=== PATIENT | female | born 2000 | race Caucasian/White ===

== ENCOUNTER 2020-10-30 10:12 | Observation (INO) ==
[2020-10-30] MEDS ORDERED: AZITHROMYCIN 250 MG TABLET PO ONE (10:38)
[2020-10-30] MEDS ORDERED: BETAMETHASONE ACETATE,SOD PHOS 6 MG/ML VIAL IM ONE (10:38)
[2020-10-30] MEDS ORDERED: AMPICILLIN SODIUM 2,000 MG in NORMAL SALINE 100 ML IV ONE (10:39)
--- NOTE | 2020-10-30 10:52 | HPDIS ---
Chief Complaint - Chief Complaint Date of Service: 10/30/20 Time of Service: 10:42 Chief Complaint: loss of fluid History of Present Illness: 20 year old at 24w 4d who presents to L&D complaining of a big gush of fluid. She denies ctx or vb. Fetus is active. No other concerns today. Medical History (Last Reviewed 10/30/20 @ 10:47 by Shadia Oneal MD) History of depression, currently (Chronic) History of gestational hypertension (Chronic) Adult BMI 39.0-39.9 kg/sq m (Chronic) Anxiety (Chronic) Elevated blood pressure reading in office without diagnosis of hypertension (Acute) anxiety vs chronic HTN. Anxiety Onset Date: Unknown hx: of citalopram d/c approximately 2 months ago Heart palpitations Onset Date: Unknown normal EKG 1 1/5 weeks ago. Obesity Onset Date: Unknown depression Onset Date: ~2017 Citalopram tx Tachycardia Onset Date: Unknown sinus tachycardia 2 1/2 weeks ago on EKG Hypothyroidism Onset Date: Unknown Gestational hypertension Onset Date: ~2017 Surgical History: Surgical History (Last Reviewed 10/30/20 @ 10:47 by Shadia Oneal MD) Onset Date: 02/13/20 History of tonsillectomy and adenoidectomy Onset Date: Unknown Family History: Family History (Last Reviewed 10/30/20 @ 10:47 by Shadia Oneal MD) Mother Lupus Hypothyroidism Father CVA (cerebral vascular accident) 2-3 Migraines Varicose veins of both lower extremities without ulcer or inflammation Other No pertinent family history Social History: (Last Reviewed 10/30/20 @ 10:47 by Shadia Oneal MD) Social History: adopted: No Marital status: Single household members: significant other number of children: 1 current occupational status: employed current occupation: [employer] Highest level of school completed/degree received: high school graduate Sexually Active: Yes Service: No Tobacco: Smoking Status: Never smoker Alcohol: alcohol intake: never Substance Use: substance use type: does not use Dietary Habits: caffeine: Yes caffeine comment: 1/day Type: tea daily servings of milk/calcium: 0-1 Pets: pets and animals: cat(s) Exercise: Physical activity type: walking frequency: 1-2 times per week Review Of Systems (GEN) - Review of Systems Generalized/Overall Review: Present: No Symptoms Reported Genitourinary: Present: Other - big gush of fluid Misc: All systems neg except as marked Immunizations: IMMUNIZATION HX Immunizations Up to Date Yes History of Influenza Vaccine Yes Hx Pneumococcal Vaccination No Allergies/Adverse Reactions: Allergies Allergy/AdvReac Type Severity Reaction Status Date / Time No Known Allergies Allergy Verified 10/13/20 11:39 Home Medications: HOME MEDICATIONS PNV 153-FA 400 mcg-om3 35 mg-dha 25 mg-epa 5 mg-fish oil chew tablet 2 tab PO DAILY tab 07/13/20 [Last Taken Unknown] hydroxyzine pamoate 25 mg capsule 25 mg PO Q4H PRN #180 cap 07/13/20 [Last Taken Unknown] aspirin 81 mg tablet,delayed release 81 mg PO DAILY 08/20/20 [Last Taken Unknown ] iron, carbonyl 18 mg iron chewable tablet 18 mg PO DAILY 08/20/20 [Last Taken Unknown] levothyroxine 100 mcg tablet 100 mcg PO DAILY #30 tab 08/26/20 [Last Taken Unknown] sertraline 50 mg tablet 50 mg PO DAILY #30 tab 08/26/20 [Last Taken Unknown] Exam - Exam Vital Signs: 37.3 118 18 128/64 97% RA 237 lbs Constitutional: Present: Alert, Oriented x3, Cooperative, No distress ENT Exam: Present: hearing grossly normal Eye Exam: bilateral eye: normal inspection Neck: Present: normal inspection Respiratory: Present: lungs clear, normal breath sounds Cardiovascular/Chest: Present: regular rate, rhythm Abdomen: Present: soft, nontender, nondistended /Rectal: Present: Other - SSE: + pooling, + Valsalva, cervix visually closed Nitrazine negative x2, Ferning negative Extremity: Present: non-tender, no calf tenderness Skin Exam: Present: normal color, warm/dry, no cyanosis Neurologic: Present: alert, normal mood/affect, oriented x 3 Appearance: Present: appropriate appearance, appropriate insight, neat, no memory impairment Eye contact: Present: cooperative, good eye contact, normal speech Thoughts: Present: normal thought pattern Assessment/Plan - Assessment/Plan (1) premature rupture of membranes (PPROM) with unknown onset of labor Assessment: Speculum examination positive for rupture Fern and nitrazine negative EMMY normal One dose of steroids given Ampicillin and zithromax given as well Transfer to the [facility] to determine definitively ruptured Problem: Acute (1) premature rupture of membranes (PPROM) with unknown onset of labor Problem: Acute Date of Discharge:: 10/30/20 Hospital Course: Patient came in large gush of fluid, rupture could not be ruled out definitively so patient transferred to the [place] Procedures Performed: none Discharge Location: [facility] Disposition: Short Term Hospital Inpatient Condition: Good Discharge Activity: Other - bed rest Discharge Diet: General/regular food Complete Home Medications List: Complete Home Medication List: PNV 153-FA 400 mcg-om3 35 mg-dha 25 mg-epa 5 mg-fish oil chew tablet 2 tab PO DAILY tab 07/13/20 hydroxyzine pamoate 25 mg capsule 25 mg PO Q4H PRN #180 cap 07/13/20 aspirin 81 mg tablet,delayed release 81 mg PO DAILY 08/20/20 iron, carbonyl 18 mg iron chewable tablet 18 mg PO DAILY 08/20/20 levothyroxine 100 mcg tablet 100 mcg PO DAILY #30 tab 08/26/20 sertraline 50 mg tablet 50 mg PO DAILY #30 tab 08/26/20
[2020-10-30 11:03] VITALS: BP 118/66
== END 2020-10-30 12:17 | disposition short-term general hospital (02) ==
LOC: OBCLINIC 10:12 → OB 10:12
PROVIDERS: ADMIT Obstetrics & Gynecology; ATTEND Obstetrics & Gynecology
DX: O42.912 Preterm premature rupture of membranes, unspecified as to length of time between rupture and onset of labor, second trimester; Z3A.24 24 weeks gestation of pregnancy

== ENCOUNTER 2021-01-22 16:27 | Inpatient (IN) ==
[2021-01-22] MEDS ORDERED: RINGER'S SOLUTION,LACTATED 1,000 ML IV ONE (16:31)
[2021-01-22] MEDS ORDERED: ONDANSETRON 4 MG TAB.RAPDIS PO PRN (16:31)
[2021-01-22] MEDS ORDERED: MAGNESIUM SULFATE IN WATER 50 ML, MAGNESIUM SULFATE IN WATER 50 ML IV ONE ×2 (16:31)
[2021-01-22] MEDS ORDERED: OXYTOCIN/0.9 % SODIUM CHLORIDE 30 UNITS/500 ML BAG IV ONE (16:31)
[2021-01-22] MEDS ORDERED: DEXTROSE 5%-LACTATED RINGERS 1,000 ML IV PRN (16:31)
[2021-01-22] MEDS ORDERED: CALCIUM GLUCONATE 4.65 MEQ/10 ML VIAL IV PRN (16:31)
[2021-01-22] MEDS ORDERED: PENICILLIN G POTASSIUM 5 MILLIONUNT in DEXTROSE 5 % IN WATER 100 ML IV ONE ×2 (16:41)
[2021-01-22] MEDS ORDERED: MAGNESIUM SULFATE IN WATER 1,000 ML IV SCH (16:45)
[2021-01-22] MEDS ORDERED: LABETALOL HCL 5 MG/ML VIAL IV ONE ×2 (16:51→17:40)
[2021-01-22] MEDS ORDERED: LABETALOL HCL 100 MG TABLET PO SCH (17:00)
[2021-01-22 17:17] LABS: Hematocrit 38.4 % (37.0-47.0); Hemoglobin 12.5 gm/dL (12.5-16.0); Mean Corpuscular Hemoglobin 29.6 pg (27-31); Mean Corpuscular Hgb Conc 32.6 g/dl (32-36); Mean Platelet Volume 11.8 fl (8-12.5); Platelet Count 178 K/mm3 (150-450); Red Blood Count 4.22 M/mm3 (4.2-5.4); Red Cell Distribution Width 14.2 % (11.5-14.0); White Blood Count 9.9 K/mm3 (4.0-10.5)
[2021-01-22 17:20] LABS: Total Cells Counted 100
[2021-01-22 17:30] LABS: Albumin * 2.3 gm/dl (3.4-5.0); Anion Gap 13.3 mmol/L (6.8-13.8); BUN/Creatinine Ratio 12.8 (9.0-21.6); Bilirubin, Total 0.3 mg/dL (0.0-1.1); Ca. Corrected For Albumin 10.1 mg/dL (8.4-10.2); Calcium * 9.1 mg/dL (7.9-10.9); Carbon Dioxide 24.7 mmol/L (24-32.6); Total Protein 6.1 gm/dL (6.2-8.2)
[2021-01-22 17:43] LABS: Eosinophil 1 % (0-3); Lymphocyte 27 % (20-51); Monocyte 4 % (0-9); Neutrophil 68 % (42-75); Neutrophil # 6.7 K/mm3 (1.3-6.0); Platelet Estimate Normal (NORMAL); RBC Morphology Normal (NORMAL)
[2021-01-22] MEDS ORDERED: LABETALOL HCL 100 MG TABLET PO STA (18:26)
[2021-01-22] MEDS: LABETALOL HCL 5 MG/ML VIAL IV ONE ×2 (18:32→18:50)
[2021-01-22 19:13] LABS: Cocaine Ur Negative (NEGATIVE); Urine Barbiturate Negative (NEGATIVE); Urine Benzodiazepines Negative (NEGATIVE); Urine Opiates Negative (NEGATIVE); Urine PCP Negative (NEGATIVE); Urine THC Negative (NEGATIVE)
--- NOTE | 2021-01-22 19:24 | HP ---
Chief Complaint - Chief Complaint Date of Service: 01/22/21 Time of Service: 16:45 Chief Complaint: here for BP check History of Present Illness: 20 yo at 36w4d admitted to L&D for induction of labor due to chronic hypertension with superimposed preeclampsia with severe features. Pt diagnosed yesterday with preeclampsia in office. Returned today for repeat BP check with severe range BPs. She denies GIORDANO, visual changes, or epigastric pain. Admits to increased swelling. This complicated by anemia, anxiety, CHTN on no meds, hypothyroid, morbid obesity, history of PP depression, and history of GHTN. Rh positive Rubella immune GBS pending Medical History (Last Reviewed 01/22/21 @ 19:16 by Adria Jaimes DO) History of depression, currently (Chronic) History of gestational hypertension (Chronic) Adult BMI 39.0-39.9 kg/sq m (Chronic) Anxiety (Chronic) Elevated blood pressure reading in office without diagnosis of hypertension (Acute) anxiety vs chronic HTN. Anxiety Onset Date: Unknown hx: of citalopram d/c approximately 2 months ago Heart palpitations Onset Date: Unknown normal EKG 1 1/5 weeks ago. Obesity Onset Date: Unknown depression Onset Date: ~2017 Citalopram tx Tachycardia Onset Date: Unknown sinus tachycardia 2 1/2 weeks ago on EKG Hypothyroidism Onset Date: Unknown Gestational hypertension Onset Date: ~2018 Surgical History: Surgical History (Last Reviewed 01/22/21 @ 19:16 by Adria Jaimes DO) Onset Date: 02/13/20 History of tonsillectomy and adenoidectomy Onset Date: Unknown Family History: Family History (Last Reviewed 01/22/21 @ 19:16 by Adria Jaimes DO) Mother Lupus Hypothyroidism Father CVA (cerebral vascular accident) 2-3 Migraines Varicose veins of both lower extremities without ulcer or inflammation Other No pertinent family history Social History: (Last Reviewed 01/22/21 @ 19:16 by Adria Jaimes DO) Social History: adopted: No Marital status: Single household members: significant other number of children: 1 current occupational status: employed current occupation: [employer] Highest level of school completed/degree received: high school graduate Sexually Active: Yes Service: No Tobacco: Smoking Status: Never smoker Alcohol: alcohol intake: never Substance Use: substance use type: does not use Dietary Habits: caffeine: Yes caffeine comment: 1/day Type: tea daily servings of milk/calcium: 0-1 Pets: pets and animals: cat(s) Exercise: Physical activity type: walking frequency: 1-2 times per week Review Of Systems (GEN) - Review of Systems Generalized/Overall Review: Present: Weight gain EENTM: Present: No Symptoms Reported Respiratory: Present: No Symptoms Reported Cardiac: Present: Edema Abdominal: Present: No Symptoms Reported Genitourinary: Present: No Symptoms Reported Musculoskeletal: Present: No Symptoms Reported Neurological: Present: Anxiety Skin: Present: No Symptoms Reported Endocrine: Present: No Symptoms Reported Immunizations: IMMUNIZATION HX Immunizations Up to Date Yes History of Influenza Vaccine Yes Hx Pneumococcal Vaccination No Allergies/Adverse Reactions: Allergies Allergy/AdvReac Type Severity Reaction Status Date / Time No Known Allergies Allergy Verified 01/22/21 16:20 Home Medications: HOME MEDICATIONS PNV 153-FA 400 mcg-om3 35 mg-dha 25 mg-epa 5 mg-fish oil chew tablet 2 tab PO DAILY tab 07/13/20 [Last Taken Unknown] aspirin 81 mg tablet,delayed release 81 mg PO DAILY 08/20/20 [Last Taken Unknown] hydroxyzine pamoate 25 mg capsule 25 mg PO Q4H PRN #180 cap 11/24/20 [Last Taken Unknown] sertraline 50 mg tablet 50 mg PO DAILY tab 12/07/20 [Last Taken Unknown] levothyroxine 125 mcg tablet 125 mcg PO DAILY #30 tab 01/12/21 [Last Taken Unknown] ferrous sulfate 325 mg (65 mg iron) tablet,delayed release 325 mg PO BID #30 tab 01/14/21 [Last Taken Unknown] Exam - Exam Vital Signs: Vital Signs - Last Taken Pulse 99 01/22/21 18:50 BP 169/93 H 01/22/21 18:50 O2 99%, R 16, T 37.0C Diagnostic Studies: Abnormal Lab Results 01/22/21 01/22/21 Range/Units 16:51 16:51 RDW 14.2 H (11.5-14.0) % Neutrophils # (Manual) 6.7 H (1.3-6.0) K/mm3 Alkaline Phosphatase 218 H (50-170) U/L Total Protein 6.1 L (6.2-8.2) gm/dL Albumin 2.3 L (3.4-5.0) gm/dl Laboratory Results WBC 9.9 K/mm3 (4.0-10.5) 01/22/21 16:51 RBC 4.22 M/mm3 (4.2-5.4) 01/22/21 16:51 Hgb 12.5 gm/dL (12.5-16.0) 01/22/21 16:51 Hct 38.4 % (37.0-47.0) 01/22/21 16:51 MCV 91.0 fl (78-100) 01/22/21 16:51 MCH 29.6 pg (27-31) 01/22/21 16:51 MCHC 32.6 g/dl (32-36) 01/22/21 16:51 RDW 14.2 % (11.5-14.0) H 01/22/21 16:51 Plt Count 178 K/mm3 (150-450) 01/22/21 16:51 MPV 11.8 fl (8-12.5) 01/22/21 16:51 Neutrophils % (Manual) 68 % (42-75) 01/22/21 16:51 Lymphocytes % (Manual) 27 % (20-51) 01/22/21 16:51 Monocytes % (Manual) 4 % (0-9) 01/22/21 16:51 Eosinophils % (Manual) 1 % (0-3) 01/22/21 16:51 Neutrophils # (Manual) 6.7 K/mm3 (1.3-6.0) H 01/22/21 16:51 Lymphocytes # (Manual) 2.7 k/mm3 (1.5-3.5) 01/22/21 16:51 Monocytes # (Manual) 0.4 k/mm3 (0.0-1.0) 01/22/21 16:51 Eosinophils # (Manual) 0.1 k/mm3 (0.0-0.7) 01/22/21 16:51 Platelet Estimate Normal (NORMAL) 01/22/21 16:51 RBC Morphology Normal (NORMAL) 01/22/21 16:51 Sodium 140 mmol/L (132-142) 01/22/21 16:51 Plasma Sodium 140 mmol/L (130-142) 01/22/21 16:51 Potassium 4.0 mmol/L (3.4-4.6) 01/22/21 16:51 Chloride 106 mmol/L (97-106) 01/22/21 16:51 Carbon Dioxide 24.7 mmol/L (24-32.6) 01/22/21 16:51 Anion Gap 13.3 mmol/L (6.8-13.8) 01/22/21 16:51 BUN 12 mg/dL (3-23) 01/22/21 16:51 Creatinine 0.94 mg/dL (0.4-1.4) 01/22/21 16:51 Est GFR (Non-Af Amer) 79 mL/min (60-130) 01/22/21 16:51 BUN/Creatinine Ratio 12.8 (9.0-21.6) 01/22/21 16:51 Random Glucose 77 mg/dL (70-110) 01/22/21 16:51 Calcium 9.1 mg/dL (7.9-10.9) 01/22/21 16:51 Calcium Adj for Albumin 10.1 mg/dL (8.4-10.2) 01/22/21 16:51 Total Bilirubin 0.3 mg/dL (0.0-1.1) 01/22/21 16:51 AST 23 U/L (0-48) 01/22/21 16:51 ALT 19 U/L (19-67) 01/22/21 16:51 Alkaline Phosphatase 218 U/L (50-170) H 01/22/21 16:51 Total Protein 6.1 gm/dL (6.2-8.2) L 01/22/21 16:51 Albumin 2.3 gm/dl (3.4-5.0) L 01/22/21 16:51 Assessment/Plan - Assessment/Plan (1) Chronic hypertension with superimposed preeclampsia Assessment: Admit for pitocin induction of labor, antihypertensives to control BP, and magnesium sulfate IV to prevent seizures. Epidural PRN. Will start on IV PCN for GBS prophylaxis since culture results still pending and patient . Problem: Acute (2) Severe preeclampsia Problem: Acute Qualifiers: Trimester: third trimester Qualified Code(s): O14.13 - Severe pre- eclampsia, third trimester (3) History of depression, currently Problem: Chronic (4) History of gestational hypertension Problem: Chronic (5) Anxiety Problem: Chronic (6) Anemia Problem: Resolved Qualifiers: Anemia type: iron deficiency Iron deficiency anemia type: inadequate dietary iron intake Qualified Code(s): D50.8 - Other iron deficiency anemias (7) Hypothyroid Problem: Acute Qualifiers: Hypothyroidism type: unspecified Qualified Code(s): E03.9 - Hypothyroidism, unspecified (8) Obesity, morbid, BMI 40.0-49.9 Problem: Acute
--- NOTE | 2021-01-22 19:50 | PN ---
Progess Note - Interim Date: 01/22/21 Time: 19:46 Narrative: 01/22/21 19:46 Patient rating contractions as mild. Denies headache, visual changes, or epigastric pain. Blood pressures no longer in severe range after 80 mg of labetalol IV and 200 mg p.o. Pitocin just started at 3 mu/min. FHT: 150 baseline, minimum variability with occasional mild variable, good accelerations. Contractions q 4-7 min Cervix: 3-4/80/-3, AROM-clear Impression: Intrauterine at 36 weeks 4 days weeks induction of labor for chronic hypertension with superimposed preeclampsia with severe features. Plan: Continue present plan
[2021-01-22] MEDS ORDERED: BUPIVACAINE HCL/0.9 % NACL/PF 250 ML EP PRN (20:52)
[2021-01-22] MEDS ORDERED: ONDANSETRON HCL/PF 2 MG/ML VIAL IV PRN (20:52)
[2021-01-22] MEDS ORDERED: NALOXONE HCL 1 MG/1 ML SYRG IV PRN (20:52)
[2021-01-22] MEDS ORDERED: BUPIVACAINE HCL/PF 30 ML VIAL EP SCH (21:00)
--- NOTE | 2021-01-22 21:40 | ANES ---
Anesthesia Pre Procedure Eval Vitals/Labs: Last Vital Signs Temp 37.0 C 01/22/21 21:11 Pulse 107 H 01/22/21 21:11 Resp 18 01/22/21 21:11 BP 145/81 H 01/22/21 21:11 Pulse Ox 100 01/22/21 21:11 HOME MEDICATIONS PNV 153-FA 400 mcg-om3 35 mg-dha 25 mg-epa 5 mg-fish oil chew tablet 2 tab PO DAILY tab 07/13/20 [Last Taken 01/21/21 14:00] aspirin 81 mg tablet,delayed release 81 mg PO DAILY 08/20/20 [Last Taken 01/22/21] hydroxyzine pamoate 25 mg capsule 25 mg PO Q4H PRN #180 cap 11/24/20 [Last Taken 01/21/21 10:00] sertraline 50 mg tablet 50 mg PO DAILY tab 12/07/20 [Last Taken 01/21/21 21:00] levothyroxine 125 mcg tablet 125 mcg PO DAILY #30 tab 01/12/21 [Last Taken 01/22/21 07:00] ferrous sulfate 325 mg (65 mg iron) tablet,delayed release 325 mg PO BID #30 tab 01/14/21 [Last Taken 01/22/21 09:00] Allergies/Adverse Reactions: Allergies Allergy/AdvReac Type Severity Reaction Status Date / Time No Known Allergies Allergy Verified 01/22/21 16:20 - Planned Procedure Planned Procedure: Labor Epidural Medication List Reviewed:: Yes Allergies Verified: Yes Medical History (Last Reviewed 01/22/21 @ 21:39 by Rohit Monahan CRNA) History of depression, currently (Chronic) History of gestational hypertension (Chronic) Adult BMI 39.0-39.9 kg/sq m (Chronic) Anxiety (Chronic) Elevated blood pressure reading in office without diagnosis of hypertension (Acute) anxiety vs chronic HTN. Anxiety Onset Date: Unknown hx: of citalopram d/c approximately 2 months ago Heart palpitations Onset Date: Unknown normal EKG 1 1/5 weeks ago. Obesity Onset Date: Unknown depression Onset Date: ~2017 Citalopram tx Tachycardia Onset Date: Unknown sinus tachycardia 2 1/2 weeks ago on EKG Hypothyroidism Onset Date: Unknown Gestational hypertension Onset Date: ~2017 Surgical History (Last Reviewed 01/22/21 @ 21:39 by Rohit Monahan CRNA) Onset Date: 02/13/20 History of tonsillectomy and adenoidectomy Onset Date: Unknown Family History (Last Reviewed 01/22/21 @ 19:16 by Adria Jaimes DO) Mother Lupus Hypothyroidism Father CVA (cerebral vascular accident) 2-3 Migraines Varicose veins of both lower extremities without ulcer or inflammation Other No pertinent family history - Anesthesia Assessment and Plan ASA Class: PS, III Anesthesia Type Plan: Epidural
[2021-01-22] MEDS: PENICILLIN G POTASSIUM 2.5 MILLIONUNT in DEXTROSE 5 % IN WATER 100 ML IV SCH ×2 (21:58)
--- NOTE | 2021-01-22 21:58 | ANES ---
Anesthesia Procedure Note Procedure Note: ANESTHESIA PROCEDURE NOTE Date of Procedure: 01/22/2021. Time of procedure: 2139. Performed by: Rohit Monahan CRNA Multifocal Lens Assembler: None. Preprocedure diagnosis: Active labor. Post procedure diagnosis: Same. Procedure: Insertion of labor epidural. Indications: The patient is a 20-year-old female in active labor requesting labor epidural for pain management. Findings: See below. Details of the procedure: The patient was placed in a sitting position. DuraPrep as well as Betadine swabs X3 was applied to the patient's back. Patient was then draped in a sterile fashion. Lidocaine 1% was infiltrated to the skin and subcutaneous tissues at the level of the L3-4 interspace. The epidural space was identified using a 18-gauge Tuohy needle with [id number] technique. Epidural catheter was inserted to a depth of 15 centimeters at skin. Negative test dose was elicited using 3 mL of 1.5% preservative-free lidocaine plus epinephrine 1 200,000. The epidural catheter was then taped and secured in place. A loading dose of 8 mL of 0.25% preservative-free bupivacaine was administered to the epidural catheter after negative aspiration for blood and CSF. EBL: Minimal. Fluids: N/A. Specimen: N/A. Post procedure condition: The patient tolerated the procedure well. No complications were noted. Thank you for this consultation. Rohit Monahan CRNA
--- NOTE | 2021-01-22 21:59 | ANES ---
Post Anesthesia Assessment - Vital Signs Vitals: Last Vital Signs Temp 37.0 C 01/22/21 21:11 Pulse 107 H 01/22/21 21:11 Resp 18 01/22/21 21:11 BP 145/81 H 01/22/21 21:11 Pulse Ox 100 01/22/21 21:11 Airway Patency: Normal - Mental Status Level Of Consciousness: Awake - N/V Assessment Nausea/Vomiting Presence: None Dehydration:: No
--- NOTE | 2021-01-23 00:21 | PN ---
Progess Note - Interim Date: 01/23/21 Time: 00:17 Narrative: 01/23/21 00:17 Patient comfortable with epidural Vital signs stable. Blood pressures in the mild range. Urine output decreasing down to 20 mL/h, dark and concentrated. Brachial radialis reflex 2+ Pitocin at 9 mu/min. FHT: 145 baseline, mild to moderate variability with mild variable decelerations with contractions. Contractions q 2-4 min Cervix: 7/90/-3 Impression: Intrauterine at 36-5/7 weeks weeks induction of labor for chronic hypertension with superimposed preeclampsia with severe features Plan: Anticipate normal spontaneous vaginal delivery within the next 2 to 3 hours. Will give 500 mm fluid bolus to see if urine output increases.
[2021-01-23] MEDS: PENICILLIN G POTASSIUM 2.5 MILLIONUNT in DEXTROSE 5 % IN WATER 100 ML IV SCH ×2 (01:18)
[2021-01-23] MEDS ORDERED: BUPIVACAINE HCL 50 ML VIAL IJ ONE (02:30)
[2021-01-23] MEDS ORDERED: ONDANSETRON HCL/PF 2 MG/ML VIAL ONE (02:31)
[2021-01-23] MEDS ORDERED: LIDOCAINE HCL/EPINEPHRINE 20 ML VIAL ONE (02:31)
[2021-01-23] MEDS ORDERED: ACETAMINOPHEN 325 MG TABLET PO PRN (03:20)
[2021-01-23] MEDS ORDERED: SENNOSIDES 8.6 MG TABLET PO PRN (03:20)
[2021-01-23] MEDS ORDERED: CALCIUM GLUCONATE 4.65 MEQ/10 ML VIAL IV PRN (03:20)
[2021-01-23] MEDS ORDERED: BENZOCAINE/MENTHOL 81 SPRAY CAN TP PRN (03:20)
[2021-01-23] MEDS ORDERED: HYDROCORTISONE 30 APPL TUBE TP PRN (03:20)
[2021-01-23] MEDS ORDERED: ONDANSETRON 4 MG TAB.RAPDIS PO PRN (03:20)
[2021-01-23] MEDS ORDERED: BISACODYL 10 MG SUPP.RECT RC PRN (03:20)
[2021-01-23] MEDS ORDERED: GLYCERIN/WITCH HAZEL LEAF 40 APPL BOX TP PRN (03:20)
[2021-01-23] MEDS ORDERED: OXYTOCIN/0.9 % SODIUM CHLORIDE 30 UNITS/500 ML BAG IV ONE (03:20)
--- NOTE | 2021-01-23 03:29 | OR ---
Operative Report - Dictated Report Narrative: Patient was taken back to the OR for vaginal delivery with OR crew on standby for possible due to repetitive late decelerations down to 4050 bpm lasting 1 to 1.5 minutes. Baby was in OP presentation and rotated manually to GUILLERMO. Spontaneous vaginal delivery of viable female at 0253 on 01/23/2021 with Apgars 5, 7, 7 weighing 3287 g and GUILLERMO position with tight nuchal cord x1. Cord clamping delayed approximately 30 seconds Placenta delivered complete, intact, with three vessel cord Estimated blood loss: Less than 50 ml Anesthesia: Epidural Lacerations: None Cord gases obtained: Arterial pH 7.04, CO2 67.9, base excess -13.4 venous pH 7.27, CO2 37.5, base excess -9.1
[2021-01-23] MEDS ORDERED: LABETALOL HCL 5 MG/ML VIAL IV ONE ×2 (05:47→07:30)
[2021-01-23] MEDS: DEXTROSE 5%-LACTATED RINGERS 1,000 ML IV PRN ×3 (06:07→21:07)
[2021-01-23] MEDS: LABETALOL HCL 100 MG TABLET PO SCH ×2 (06:09→16:48)
[2021-01-23] MEDS: IBUPROFEN 800 MG TABLET PO PRN (07:05)
[2021-01-23] MEDS ORDERED: LABETALOL HCL 100 MG TABLET PO SCH ×3 (09:00→17:30)
[2021-01-23] MEDS ORDERED: SERTRALINE HCL 50 MG TABLET PO SCH (09:00)
[2021-01-23] MEDS ORDERED: LEVOTHYROXINE SODIUM 125 MCG TABLET PO SCH (09:00)
[2021-01-23] MEDS: DOCUSATE SODIUM 100 MG CAPSULE PO SCH ×2 (09:13→20:59)
[2021-01-23] MEDS: PRENATAL VITS96/IRON FUM/FOLIC 1 TAB TABLET PO SCH (09:13)
[2021-01-23] MEDS: LEVOTHYROXINE SODIUM 125 MCG TABLET PO SCH (09:13)
[2021-01-23] MEDS: SERTRALINE HCL 50 MG TABLET PO SCH (09:13)
[2021-01-23] MEDS: MAGNESIUM SULFATE IN WATER 1,000 ML IV SCH ×2 (13:58→20:59)
[2021-01-23] MEDS: LABETALOL HCL 5 MG/ML VIAL IV ONE (16:20)
--- NOTE | 2021-01-23 16:20 | PN ---
Subjective - Date and Time Seen Date: 01/23/21 Time: 16:12 Subjective Narrative: Patient denies headache, flashes of light, or abdominal pain. Some trouble focusing her vision due to the magnesium but otherwise asymptomatic. Breast- feeding well. Objective - Review of Systems Generalized/Overall Review: Reports: No Symptoms Reported EENTM: Reports: Blurred Vision Respiratory: Reports: No Symptoms Reported. Denies: Shortness of Breath Cardiac: Reports: Edema. Denies: Chest Pain Abdominal: Denies: Nausea, Vomiting, Abdominal Pain Genitourinary Symptoms: Reports: No Symptoms Reported Musculoskeletal Complaints: Reports: No Symptoms Reported Neurological: Reports: No Symptoms Reported Skin: Reports: No Symptoms Reported Endocrine: Reports: No Symptoms Reported - Vitals Vitals: Last Vital Signs Temp 36.4 C 01/23/21 12:00 Pulse 85 01/23/21 15:00 Resp 16 01/23/21 15:00 BP 161/92 H 01/23/21 15:00 Pulse Ox 100 01/23/21 15:00 Blood pressures elevated in severe range this morning and again now. - Abnormal Lab Findings Abnormal Lab Findings: Abnormal Lab Results 01/22/21 01/22/21 Range/Units 16:51 16:51 RDW 14.2 H (11.5-14.0) % Neutrophils # (Manual) 6.7 H (1.3-6.0) K/mm3 Alkaline Phosphatase 218 H (50-170) U/L Total Protein 6.1 L (6.2-8.2) gm/dL Albumin 2.3 L (3.4-5.0) gm/dl - Exam Constitutional: Present: Alert, Oriented x3, Cooperative, No distress ENT Exam: Present: hearing grossly normal Breasts: Present: Exam deferred Respiratory: Present: no respiratory distress Cardiovascular/Chest: Present: regular rate, rhythm Abdomen: Present: soft, nontender, no rebound tenderness Extremity: Present: no calf tenderness, lower extremity edema - 3+ Skin Exam: Present: normal color, warm/dry, no cyanosis Neurologic: Present: alert, normal mood/affect, oriented x 3, other - DTR 3/4, no clonus Appearance: Present: appropriate appearance, appropriate insight Eye contact: Present: cooperative, good eye contact Thoughts: Present: normal thought pattern, normal mood /affect Cauti Physician Documentation - Urinary Catheter Management Urethral ([place]) Urethral Indwelling: Yes Reason for Continuing Indwelling Catheter: Measure accurate output Date of Insertion: 01/22/21 Time of Insertion: 17:58 Date of Removal: 01/24/21 Time of Removal: 02:00 Assessment/Plan Plan Narrative: Give another dose of labetalol 20 mg IV x1. Continue to monitor urine output closely. Continue magnesium sulfate at least 24 hours. Once magnesium sulfate DC'd, will advance diet, remove catheter, and increase activity. - Problems/Diagnosis (1) Chronic hypertension with superimposed preeclampsia Problem: Acute (2) Severe preeclampsia Problem: Acute Qualifiers: Trimester: third trimester Qualified Code(s): O14.13 - Severe pre- eclampsia, third trimester (3) History of depression, currently Problem: Chronic (4) History of gestational hypertension Problem: Chronic (5) Anxiety Problem: Chronic (6) Anemia Problem: Resolved Qualifiers: Anemia type: iron deficiency Iron deficiency anemia type: inadequate dietary iron intake Qualified Code(s): D50.8 - Other iron deficiency anemias (7) Hypothyroid Problem: Acute Qualifiers: Hypothyroidism type: unspecified Qualified Code(s): E03.9 - Hypothyroidism, unspecified (8) Obesity, morbid, BMI 40.0-49.9 Problem: Acute
[2021-01-24] MEDS: LABETALOL HCL 100 MG TABLET PO SCH ×3 (05:43→21:17)
[2021-01-24] MEDS ORDERED: [UNRECOGNIZED DRUG - REMARK] PO SCH (09:00)
[2021-01-24] MEDS: PRENATAL VITS96/IRON FUM/FOLIC 1 TAB TABLET PO SCH (09:19)
[2021-01-24] MEDS: DOCUSATE SODIUM 100 MG CAPSULE PO SCH ×2 (09:20→21:15)
--- NOTE | 2021-01-24 09:21 | PN ---
Progess Note - Interim Date: 01/24/21 Time: 09:17 Narrative: 01/24/21 09:17 Patient feeling much better since magnesium discharged. Denies headache, visual changes, or epigastric pain. Breast-feeding. Blood pressures running 140s - 150s over 80s - 90s on 300 mg of labetalol twice daily. I/O: 700 in, 1300 out over last 4 hours. Lochia wnl abdomen - soft, nontender Uterus -firm, at umbilicus - 1 DTR-3/4. No calf tenderness. 3+ pitting edema to knees. Impression: day #1 - s/p spontaneous vaginal delivery. Chronic hypertension with superimposed preeclampsia with severe features-resolving. Patient's blood pressures seem to be better controlled, starting to murray zapata, bonding with baby well. Plan: Continue routine care. Continue to monitor closely for return of severe features. Anticipate discharge to home tomorrow morning.
[2021-01-24] MEDS: SERTRALINE HCL 50 MG TABLET PO SCH (09:36)
[2021-01-24] MEDS: LEVOTHYROXINE SODIUM 125 MCG TABLET PO SCH (09:38)
[2021-01-24] MEDS: IBUPROFEN 800 MG TABLET PO PRN ×2 (11:48→21:40)
[2021-01-24] MEDS: oxyCODONE HCL/ACETAMINOPHEN 1 TAB TABLET PO PRN (11:48)
[2021-01-24] MEDS ORDERED: LABETALOL HCL 5 MG/ML VIAL IV ONE (12:05)
[2021-01-24] MEDS: LABETALOL HCL 5 MG/ML VIAL IV ONE (12:24)
[2021-01-25] MEDS: LEVOTHYROXINE SODIUM 125 MCG TABLET PO SCH (07:32)
[2021-01-25] MEDS: LABETALOL HCL 100 MG TABLET PO SCH ×3 (08:51→17:53)
[2021-01-25] MEDS: SERTRALINE HCL 50 MG TABLET PO SCH (08:51)
[2021-01-25] MEDS: PRENATAL VITS96/IRON FUM/FOLIC 1 TAB TABLET PO SCH (08:51)
[2021-01-25] MEDS: oxyCODONE HCL/ACETAMINOPHEN 1 TAB TABLET PO PRN (08:52)
[2021-01-25] MEDS: DOCUSATE SODIUM 100 MG CAPSULE PO SCH ×2 (08:52→20:16)
--- NOTE | 2021-01-25 09:19 | PN ---
Subjective - Date and Time Seen Date: 01/25/21 Time: 09:17 Objective - Vitals Vitals: Last Vital Signs Temp 36.7 C 01/25/21 07:23 Pulse 85 01/25/21 08:51 Resp 18 01/25/21 07:23 BP 158/85 H 01/25/21 08:51 Pulse Ox 98 01/25/21 07:23 Patient denies complaints. Breast-feeding well. Denies headache, visual changes, or epigastric pain. Lochia wnl abdomen - soft, nontender Uterus -firm, at umbilicus - 2 No calf tenderness Impression: day #2 - s/p spontaneous vaginal delivery. Chronic hypertension with superimposed severe preeclampsia-slowly resolving. Patient requiring 300 mg of labetalol twice daily with blood pressure still borderline severe. Will increase blood pressure medication to 300 mg 3 times daily. Plan: Routine discharge instructions. Preeclampsia precautions. Follow-up in the office in 1 week for blood pressure check. Cauti Physician Documentation - Urinary Catheter Management Urethral ([place]) Urethral Indwelling: Yes Date of Insertion: 01/22/21 Time of Insertion: 17:58 Date of Removal: 01/24/21 Time of Removal: 05:58 Assessment/Plan - Problems/Diagnosis (1) Chronic hypertension with superimposed preeclampsia Problem: Acute (2) Severe preeclampsia Problem: Acute Qualifiers: Trimester: third trimester Qualified Code(s): O14.13 - Severe pre- eclampsia, third trimester (3) History of depression, currently Problem: Chronic (4) History of gestational hypertension Problem: Chronic (5) Anxiety Problem: Chronic (6) Anemia Problem: Resolved Qualifiers: Anemia type: iron deficiency Iron deficiency anemia type: inadequate dietary iron intake Qualified Code(s): D50.8 - Other iron deficiency anemias (7) Hypothyroid Problem: Acute Qualifiers: Hypothyroidism type: unspecified Qualified Code(s): E03.9 - Hypothyroidism, unspecified (8) Obesity, morbid, BMI 40.0-49.9 Problem: Acute
[2021-01-25] MEDS ORDERED: NIFEdipine 30 MG TAB.SR.24H PO SCH (12:30)
[2021-01-25] MEDS ORDERED: LABETALOL HCL 5 MG/ML VIAL IV ONE ×2 (14:46→15:30)
[2021-01-25] MEDS ORDERED: hydrALAZINE HCL 20 MG/ML VIAL IV ONE (16:10)
[2021-01-25] MEDS ORDERED: hydrOXYzine PAMOATE 25 MG CAPSULE PO PRN (16:53)
--- NOTE | 2021-01-25 19:35 | PN ---
Jose Note - Interim Date: 01/25/21 Time: 19:29 Narrative: 01/25/21 19:29 Prior to discharge patient began having severe range blood pressures she was given 20 mg of IV labetalol and started on nifedipine XL 60 mg in addition to her labetalol 300 mg twice daily. Within a short period of time she believed had another episode of severely elevated blood pressures. This time she was given hydralazine 20 mg IV which brought her blood pressures down to a normal range. I suspect a significant contributing factor to her elevated blood pressures as her anxiety. I will increase her Zoloft to 75 mg daily and send her home on labetalol 300 mg twice daily with nifedipine XL 90 mg daily. We wi ll continue to monitor her blood pressures overnight. If she remains stable she will be discharged tomorrow morning.
[2021-01-26] MEDS: oxyCODONE HCL/ACETAMINOPHEN 1 TAB TABLET PO PRN (06:43)
[2021-01-26] MEDS: IBUPROFEN 800 MG TABLET PO PRN (06:43)
[2021-01-26] MEDS: LEVOTHYROXINE SODIUM 125 MCG TABLET PO SCH (06:43)
[2021-01-26] MEDS: DOCUSATE SODIUM 100 MG CAPSULE PO SCH (08:37)
[2021-01-26] MEDS: PRENATAL VITS96/IRON FUM/FOLIC 1 TAB TABLET PO SCH (08:37)
[2021-01-26 08:41] VITALS: BP 135/83
[2021-01-26] MEDS ORDERED: NIFEdipine 30 MG TAB.SR.24H PO SCH (09:00)
[2021-01-26] MEDS ORDERED: LABETALOL HCL 100 MG TABLET PO SCH (09:00)
[2021-01-26] MEDS ORDERED: SERTRALINE HCL 50 MG TABLET PO SCH (09:00)
--- NOTE | 2021-01-26 09:17 | PN ---
Subjective - Date and Time Seen Date: 01/26/21 Time: 09:13 Objective - Vitals Vitals: Last Vital Signs Temp 36.3 C 01/26/21 06:45 Pulse 97 01/26/21 08:38 Resp 18 01/26/21 06:45 BP 135/83 01/26/21 08:38 Pulse Ox 99 01/26/21 06:45 Patient denies complaints. Denies headache, visual changes, or epigastric pain. Blood pressures much better controlled after new changes to medication- tolerating well. Lochia wnl abdomen - soft, nontender Uterus -firm, at umbilicus - 2 No calf tenderness. DTR-2/4. Decreased pitting edema. Impression: day #3 - s/p spontaneous vaginal delivery. Chronic hypertension with superimposed preeclampsia with severe features resolving. Plan: Routine discharge instructions. Preeclampsia precautions. Patient will take blood pressure twice a day and call for severe range pressures. Follow-up in the office on Monday as scheduled. Cauti Physician Documentation - Urinary Catheter Management Urethral ([place]) Urethral Indwelling: Yes Date of Insertion: 01/22/21 Time of Insertion: 17:58 Date of Removal: 01/24/21 Time of Removal: 05:58 Assessment/Plan - Problems/Diagnosis (1) Chronic hypertension with superimposed preeclampsia Problem: Acute (2) Severe preeclampsia Problem: Acute Qualifiers: Trimester: third trimester Qualified Code(s): O14.13 - Severe pre- eclampsia, third trimester (3) History of depression, currently Problem: Chronic (4) History of gestational hypertension Problem: Chronic (5) Anxiety Problem: Chronic (6) Anemia Problem: Resolved Qualifiers: Anemia type: iron deficiency Iron deficiency anemia type: inadequate dietar y iron intake Qualified Code(s): D50.8 - Other iron deficiency anemias (7) Hypothyroid Problem: Acute Qualifiers: Hypothyroidism type: unspecified Qualified Code(s): E03.9 - Hypothyroidism, unspecified (8) Obesity, morbid, BMI 40.0-49.9 Problem: Acute
--- NOTE | 2021-01-26 09:23 | DS ---
OB Discharge Summary (1) Chronic hypertension with superimposed preeclampsia Status: Acute (2) Severe preeclampsia Status: Acute Qualifiers: Trimester: third trimester Qualified Code(s): O14.13 - Severe pre- eclampsia, third trimester (3) History of depression, currently Status: Chronic (4) Anxiety Status: Chronic (5) Anemia Status: Resolved Qualifiers: Anemia type: iron deficiency Iron deficiency anemia type: inadequate diet shine iron intake Qualified Code(s): D50.8 - Other iron deficiency anemias (6) Hypothyroid Status: Acute Qualifiers: Hypothyroidism type: unspecified Qualified Code(s): E03.9 - Hypothyroidism, unspecified (7) Obesity, morbid, BMI 40.0-49.9 Status: Acute (8) History of gestational hypertension Status: Chronic Delivery Date: 01/23/21 Delivery Time: 02:53 :: 3 Para:: 2 Gestational weeks:: 36 Gestational days:: 5 Intrapartum Procedures: Spontaneous Vaginal Delivery, Delivered Procedures: Other - IV antihypertensives /OP Complications: Preeclampsia/GHTN, Other - severe range PP blood pressures Discharge Diagnosis: Term -Delivered, Preeclampsia mild/severe - severe, Rubella Immune - Discharge Information Hospital Course: 20-year-old 2 now para 2 admitted at 36 5 7 weeks for chronic hypertension with superimposed preeclampsia with severe features. Delivery went uneventful. Her course was complicated by persistent and increasingly severe blood pressures requiring multiple IV doses. She required 3 antihypertensive medications to get it under control. By her third day we were able to manage her blood pressures with a combination of labetalol 300 mg twice daily with nifedipine 90 mg XL. She was discharged with preecl ampsia precautions and instructions to take her blood pressure twice a day. She has appointment to see us in the office in 5 days. Discharge Location: Home Disposition: Home self-care Activity on Discharge:: Activity as tolerated, Pelvic Rest Discharge Diet: General/regular food Additional Patient Instructions (free text): Bekah your follow up appointment is February 01 at 10:[address] Jaimes. Check Blood Pressure at home 2x/day. If >160/>110 repeat it in 15 minutes. If still elevated, call the Doctor. Call for headache not relieved by Tylenol and rest, visual disturbances, pain under your ribs, generalized not feeling well, or increased weight gain in a short amount of time. Augie's follow up appointment is scheduled for 01/28/21 @ 9:45AM with Dr James. Her blood type is O+ Discharge weight is 6 pounds 10.4 ounces. Her Bilirubin is 10.0 at 73 hours of age. Call if you cannot wake her up to eat 2 feedings in a row. Her jaundice may be getting worse. Continue to breastfeed her at least every 2-3 hours or on demand. Always place her on her back to sleep in her own bassinet or crib. No loose blankets, bumper pads, stuffed animals or pillows. Thank you for choosing [facility]. If you have any questions or concerns please don't hesitate to call us at [phone]. [facility] [phone]. [facility] [phone]. Prescriptions (Any new or edited meds): Ibuprofen [Motrin] 200 - 800 mg PO Q6H PRN #100 tab PRN Reason: Pain NIFEdipine [Procardia Xl] 90 mg PO DAILY #30 tab.sr.24h Transmission Status: Pending to [id number] Labetalol HCl [Trandate] 300 mg PO BID #180 tab Transmission Status: Pending to [id number] Labetalol HCl [Trandate] 300 mg PO BID 30 Days #180 tab Transmission Status: Received by [id number] Labetalol HCl [Trandate] 300 mg PO Q8H #270 tab Transmission Status: Received by [id number] hydrOXYzine PAMOATE [Vistaril] 25 mg PO Q4H PRN #30 cap PRN Reason: Anxiety Transmission Status: Pending to [facility] Sertraline HCl [Zoloft] 75 mg PO DAILY 30 Days #50 tab Transmission Status: Pending to [facility] Complete Home Medications List: Complete Home Medication List: PNV 153-FA 400 mcg-om3 35 mg-dha 25 mg-epa 5 mg-fish oil chew tablet 2 tab PO DAILY tab 07/13/20 hydroxyzine pamoate 25 mg capsule 25 mg PO Q4H PRN #180 cap 11/24/20 sertraline 50 mg tablet 50 mg PO DAILY tab 12/07/20 levothyroxine 125 mcg tablet 125 mcg PO DAILY #30 tab 01/12/21 Ibuprofen [Motrin] 200 - 800 mg PO Q6H PRN #100 tab 01/24/21 Labetalol HCl [Trandate] 300 mg PO BID 30 Days #180 tab 01/24/21 Labetalol HCl [Trandate] 300 mg PO Q8H #270 tab 01/25/21 Labetalol HCl [Trandate] 300 mg PO BID #180 tab 01/26/21 NIFEdipine [Procardia Xl] 90 mg PO DAILY #30 tab.sr.24h 01/26/21 Sertraline HCl [Zoloft] 75 mg PO DAILY 30 Days #50 tab 01/26/21 hydrOXYzine PAMOATE [Vistaril] 25 mg PO Q4H PRN #30 cap 01/26/21 - Plan Discharge to:: Home Follow up in office in:: 3-4 weeks - [place] Information Weight (Grams): 3,287 Sex: Female Score 1 min: 5 Score 5 min: 7 Infant Complications: Extended Bradycardia, Multiple Late Decels Other Complications: had resp distress and was given cpap at time of delivery. apgars. 5/7/7/9
== END 2021-01-26 10:35 | disposition home or self-care (01) | DRG 807 ==
LOC: OB 16:27
PROVIDERS: ADMIT Obstetrics & Gynecology; ATTEND Obstetrics & Gynecology